=== PATIENT | male | born 1965 | race Caucasian/White ===

== ENCOUNTER 2024-04-06 00:24 | Day surgery (SDC) | payer BC, SELFPAY ==
[2024-03-22 16:05] VITALS: BMI 42.7
[2024-04-06] MEDS: LACTATED RINGERS 1,000 ML 150 ML IV CONT (09:03)
[2024-04-06 09:05] VITALS: BP 129/76; PULSE 73; RESP 20; TEMP 35.8; O2SAT 98; BMI 42.0
--- NOTE | 2024-04-06 09:07 | PM.IMHP ---
H&P: HPI History of Present Illness Date/Time: 04/06/24 09:07 Chief Complaint: history of colon polyps. Narrative: The patient has a history of colonic polyps, the last colonoscopy was 3 years ago. Review of Systems Review of Systems: All systems reviewed & are unremarkable except as noted in HPI and below PMFSH Past Medical History Medical History (Updated 04/06/24 @ 09:08 by Tyler Reynolds MD) Acute sinusitis Annual physical exam Encounter for screening for malignant neoplasm of prostate Glaucoma Obesity Prediabetes Screening for cholesterol level URI (upper respiratory infection) Weight loss Surgical History Surgical History (Updated 04/18/23 @ 08:22 by Leeanna Villegas CMA) H/O colonoscopy Social History Social History Smoking packs per day: 1 Smoking cigarettes per day: 20.0 Smoking status: Former smoker Tobacco type: cigarettes Smokeless tobacco user: chewing tobacco Alcohol intake: current Drinks per week: 2 Alcohol use details: rarely Substance use: unknown Living arrangements: with family Occupation/Education: occupation 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 Spiritual care concerns: No Agree to blood products: Yes Meds Home Medications and Allergies Home Medications Medication Instructions Recorded Confirmed Type albuterol sulfate 2.5 mg/3 mL 2.5 mg (3 mL) inhalation Q4-6H PRN 04/18/23 04/06/24 Rx (0.083 %) solution for nebulization shortness of breath or wheezing #180 mL albuterol 90 mcg-budesonide 80 2 inh inhalation 6XD PRN shortness 02/21/24 04/06/24 Rx mcg/actuation HFA aerosol inhaler of breath #10.7 grams (Airsupra) levothyroxine 175 mcg tablet 175 mcg PO DAILY #90 tabs 04/02/24 04/06/24 Rx Allergies Allergy/AdvReac Type Severity Reaction Status Date / Time No Known Allergies Allergy Verified 04/06/24 08:53 Assessment and Plan Assessment and plan (1) History of colonic polyps: Code(s): Z86.0100 - Personal history of colon polyps, unspecified Status: Acute Plan The patient is deemed a good candidate for the procedure. Consent signed. Will proceed.
[2024-04-06 09:32] VITALS: BP 115/73; PULSE 79; RESP 20; O2SAT 94
[2024-04-06 09:42] VITALS: BP 112/79; PULSE 68; RESP 16; O2SAT 94
[2024-04-06 09:52] VITALS: BP 101/69; PULSE 67; RESP 18; O2SAT 95
== END 2024-04-06 10:05 | disposition home or self-care (01) ==
PROVIDERS: PCP Physician Assistant Medical; Visit Provider Internal Medicine Gastroenterology
PROC: 0DJD8ZZ Inspection of Lower Intestinal Tract, Via Natural or Artificial Opening Endoscopic (ICD-10-PCS; CPT 45378; principal; 2024-04-06 10:00)
DX: Z12.11 Encounter for screening for malignant neoplasm of colon (principal); Z86.0100 Personal history of colon polyps, unspecified; F17.220 Nicotine dependence, chewing tobacco, uncomplicated
CPT/HCPCS: 45378; J2003; J2704; J7120

== ENCOUNTER 2025-04-03 10:04 | Outpatient (CLI) | payer BC, SELFPAY ==
--- OUTSIDE RECORDS SUMMARY | 2025-04-03 11:41 | XMS_ITS ---
Author Organization Unknown ENCOUNTERS Encounter Performer Location Date Diagnosis Diagnosis Status Outpatient Jackie Rowe [facility] [address] [place] [address] [id number] Outpatient [facility] [address] [place] [address] [id number] RANI *Note: Encounters from your own facility or health system may be excluded. Allergies, Adverse Reactions, Alerts Allergen Type Severity Identification Date Medications Name Date Quantity Days Supplied GPI Number
--- OUTSIDE RECORDS SUMMARY | 2025-04-03 11:41 | XMS_ITS | Clinical Summary ---
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 Name Role Phone Unavailable Primary Care Provider Unavailabl e Social History Tobacco Use Types Packs/Day Years Used Date Smoking Tobacco: Never Assessed Sex and Gender Information Value Date Recorded Sex Assigned at Not on file Legal Sex Male 7:05 PM CDT Gender Identity Not on file Sexual Orientation Not on file Plan of Treatment Health Maintenance Due Date Last Done Comments Colorectal Cancer Screening Colonoscopy (10 Years) 1963 Annual Physical 1966 Hepatitis C 1981 DTaP, Tdap and Td Vaccines ( 1 - Tdap) 1982 Pneumococcal Vaccine: 50+ Ye ars (1 of 1 - PCV) 2013 Zoster Vaccines (1 of 2) 2013 COVID-19 Vaccine (1 - 2023-2 5 season) 2025 Influenza Adult (#1) 2025 RSV Immunization or 60+ Years (1 - 1-dose 75+ series) 2038 Meningococcal B Vaccine Aged Out No l onger eligible based on patient's age to complete this topic Meningococcal Vaccine Aged Out No ese halima eligible based on patient's age to complete this topic RSV Immunizations Under 20 Months Aged Out No longer eligible based on patient's age to complete this topic
== END 2025-04-03 10:05 | disposition home or self-care (01) ==
LOC: ANHLAB 10:07
PROVIDERS: PCP Nurse Practitioner Family; Visit Provider Nurse Practitioner Family
DX: R79.89 Other specified abnormal findings of blood chemistry (principal); E83.52 Hypercalcemia
CPT/HCPCS: 36415; 82306

== ENCOUNTER 2025-05-01 11:22 | Outpatient (CLI) | payer BC, SELFPAY ==
--- NOTE | ~2025-05-01 | US_ITS ---
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 Findings: Correlating with the palpable area there is a complex septated cystic focus without increased flow measuring 1.4 x 1.1 x 1.6 cm. IMPRESSION: Possible complicated ganglion cyst but incompletely evaluated. Contrast-enhanced MRI is recommended Reviewed, dictated and finalized at location P. L MAINTENANCE TECHNICIAN IMPRESSION: Possible complicated ganglion cyst but incompletely evaluated. Cont rast-enhanced MRI is recommended
--- NOTE | ~2025-05-01 | XR_ITS ---
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 Findings: There is a remote impacted fracture of the distal radius. There is a remote corticated fracture of the ulnar styloid process. 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 Soft tissues unremarkable. Impression: No acute fracture or malalignment. Reviewed, dictated and finalized at location P. C STORE MANAGER Impression: No acute fracture or malalignment.
--- OUTSIDE RECORDS SUMMARY | 2025-05-01 13:04 | XMS_ITS | Clinical Summary ---
Author Organization [facility] Address [address] [place] [address] Care Team Providers Care Hand Launderer Name Role Phone Unavailable Primary Care Provider [...] of 2) 2013 COVID-19 Vaccine (1 - 2024-2 6 season) 2025 Influenza Adult (#1) 2025 RSV Immunization or 60+ Years (1 - 1-dose 75+ series) 2038 Hepatitis A Vaccines Aged Out No long er eligible based on patient's age to complete this topic Meningococcal B Vaccine Aged Out No l onger eligible based on patient's age to complete this topic Meningococcal Vaccine Aged Out No ese halima eligible based on patient's age to complete this topic RSV Immunizations Under 20 Months Aged Out No longer eligible based on patient's age to complete this topic
== END 2025-05-01 11:23 | disposition home or self-care (01) ==
PROVIDERS: PCP Nurse Practitioner Family; Visit Provider Physician Assistant Surgical
DX: R22.31 Localized swelling, mass and lump, right upper limb (principal)
CPT/HCPCS: 73100; 76882